=== PATIENT | male | born 1955 | race Caucasian/White ===

== ENCOUNTER 2017-08-26 18:51 | Inpatient (IN) | payer MEDICARE, OTHER ==
[2017-08-26] MEDS: ACETAMINOPHEN 650 MG SUPP PR (19:44)
[2017-08-26] MEDS: CEFEPIME 1GM/50 ML (PMX) 50 ML IVPB (19:53)
[2017-08-26] MEDS: SOD CHLORIDE 0.9% 1,970 ML IV (19:54)
[2017-08-26 20:00] LABS: ADD MAN DIFF? NO
[2017-08-26 20:04] LABS: BASOPHILS % 0.2 % (0.0-2.0); EOSINOPHILS # 0.3 10^3/ul (0.0-0.5); EOSINOPHILS % 1.3 % (0.0-7.0); HEMATOCRIT 28.1 % (42.0-52.0); LYMPHOCYTES # 1.5 10^3/ul (0.8-2.9); LYMPHOCYTES % 7.5 % (15.0-51.0); MEAN CORPUSCULAR HEMOGLOBIN 24.7 pg (29.0-33.0); MEAN CORPUSCULAR VOLUME 77.2 fl (82.0-101.0); MEAN PLATELET VOLUME 10.9 fl (7.4-10.4); MONOCYTE # 1.4 10^3/ul (0.3-0.9); MONOCYTES % 6.9 % (0.0-11.0); NEUTROPHIL # 16.5 10^3/ul (1.6-7.5); NEUTROPHILS % 83.5 % (39.0-77.0); PLATELET COUNT 317 10^3/UL (140-415); RED BLOOD COUNT 3.64 10^6/ul (4.70-6.10); RED CELL DISTRIBUTION WIDTH 21.2 % (11.5-14.5)
[2017-08-26 20:04] LABS: WHITE BLOOD COUNT 19.7 10^3/ul (4.8-10.8)
[2017-08-26 20:24] LABS: AADO2 Arterial 84.7 mmHg (7.0-24.0); Arterial Blood Gas Oxygen Sat 98.3 mmHG (95.0-98.0); Arterial COHb 0.3 % (0.0-3.0); Arterial Fraction of Oxyhgb 97.6 % (93.0-99.0); Arterial HCO3 34.5 mmol/L (22.0-26.0); Arterial MetHb 0.4 % (0.0-1.5); Arterial Total Hemglobin 8.6 g/dl (12.0-18.0); Arterial pCO2 47.2 mmhg (35-45); MODE TRACH COLLAR; PROTIME 14.4 Sec (11.9-14.9); PT RATIO 1.1; Site Right Brachial
[2017-08-26 20:25] LABS: LACTIC ACID 1.6 mmol/L (0.5-2.0)
[2017-08-26 20:25] LABS: PARTIAL THROMBOPLASTIN TIME 41.4 Sec (25.0-35.0)
[2017-08-26 20:27] LABS: ALANINE AMINOTRANSFERASE 32 IU/L (13-69); ALBUMIN/GLOBULIN RATIO 0.69; ALKALINE PHOSPHATASE 87 IU/L (42-121); ANION GAP 8 (8-16); ASPARTATE AMINO TRANSFERASE 38 IU/L (15-46); BILIRUBIN,INDIRECT 0.3 mg/dl (0-1.1); BILIRUBIN,TOTAL 0.3 mg/dl (0.2-1.3); BLOOD UREA NITROGEN 13 mg/dl (7-20); CALCIUM 8.2 mg/dl (8.4-10.2); CARBON DIOXIDE 38 mmol/L (21-31); CHLORIDE 90 mmol/L (97-110); CREATININE 0.46 mg/dl (0.61-1.24); GLUCOSE 88 mg/dl (70-220); POTASSIUM 3.7 mmol/L (3.5-5.1); SODIUM 132 mmol/L (135-144); TOTAL PROTEIN 7.3 g/dl (6.1-8.1)
[2017-08-26 20:38] LABS: TROPONIN-I < 0.012 ng/ml (0.00-0.12)
[2017-08-26] MEDS: VANCOMYCIN 1 GM (PMX) 250 ML IVPB (20:47)
[2017-08-26] MEDS ORDERED: ONDANSETRON 4 MG INJ IV (21:00)
[2017-08-26] MEDS: IPRATROPIUM (NEB) 0.5 MG/2.5 ML AMP NEB (21:00)
[2017-08-26] MEDS ORDERED: METOCLOPRAMIDE 10 MG INJ IV (21:00)
[2017-08-26] MEDS ORDERED: ACETAMINOPHEN 650 MG SUPP PR (21:00)
[2017-08-26] MEDS: AZITHROMYCIN 500MG/NS (PMX) 250 ML IV (21:00)
[2017-08-26] MEDS ORDERED: NA PHOSPHATE/BIPHOS 133 ML ENEMA PR (21:00)
[2017-08-26] MEDS ORDERED: VANCOMYCIN IV PER PHARMACY XX (21:00)
[2017-08-26] MEDS ORDERED: ALBUTEROL/IPRATROPIUM (NEB) 3 ML AMP HHN (21:00)
[2017-08-26] MEDS: ALBUTEROL 0.083% (NEB) 2.5 MG/3 ML AMP NEB (21:00)
[2017-08-26] MEDS ORDERED: ZOLPIDEM 5 MG TAB GTB (21:30)
[2017-08-26] MEDS ORDERED: GLUCAGON 1 MG INJ IM (22:00)
[2017-08-26] MEDS ORDERED: GLUCOSE GEL 15 GRAM TUBE PO ×2 (22:00)
[2017-08-26] MEDS ORDERED: GLUCOSE GEL 15 GRAM TUBE BUCCAL (22:00)
[2017-08-26] MEDS ORDERED: DEXTROSE 50% 50 ML SYRINGE IV ×2 (22:00)
[2017-08-26] MEDS: SOD CHLORIDE 0.9% 500 ML IV (22:14)
[2017-08-26 23:12] LABS: LACTIC ACID 0.9 mmol/L (0.5-2.0)
[2017-08-27 00:32] LABS: LACTIC ACID 1.1 mmol/L (0.5-2.0)
[2017-08-27] MEDS: IPRATROPIUM (NEB) 0.5 MG/2.5 ML AMP NEB ×6 (01:18→20:09)
[2017-08-27] MEDS: ALBUTEROL 0.083% (NEB) 2.5 MG/3 ML AMP NEB ×6 (01:18→20:09)
[2017-08-27] MEDS ORDERED: PENDING SANTYL ORDER FOR WOUND CARE XX (02:00)
[2017-08-27] MEDS: FAMOTIDINE 20 MG INJ IV ×3 (02:22→21:05)
[2017-08-27] MEDS: DEXTROSE 5%-0.9% NACL 1,000 ML IV ×3 (02:23→18:30)
[2017-08-27] MEDS: KETOROLAC 30 MG INJ IV (02:23)
[2017-08-27] MEDS: PIPER-TAZO 3.375 GM IV (PMX) 100 ML IV ×3 (02:24→07:30)
[2017-08-27] MEDS: ACCU-CHEK XX (02:25)
[2017-08-27] MEDS: VANCOMYCIN 1.25 GM in SOD CHLORIDE 0.9% 250 ML IVPB ×2 (07:30→18:23)
[2017-08-27] MEDS: INSULIN ASPART [NOVOLOG] 3 ML PEN SC ×4 (07:55→21:00)
[2017-08-27 08:56] LABS: WHITE BLOOD COUNT 32.4 10^3/ul (4.8-10.8)
[2017-08-27 08:56] LABS: ABNORMAL IP MESSAGE 1; HEMATOCRIT 24.6 % (42.0-52.0); HEMOGLOBIN 7.9 g/dl (14.0-18.0); MEAN CORPUSCULAR HEMOGLOBIN 25.1 pg (29.0-33.0); MEAN CORPUSCULAR HGB CONC 32.1 g/dl (32.0-37.0); MEAN CORPUSCULAR VOLUME 78.1 fl (82.0-101.0); MEAN PLATELET VOLUME 10.9 fl (7.4-10.4); PLATELET COUNT 249 10^3/UL (140-415); POSITIVE DIFF @See below; RED BLOOD COUNT 3.15 10^6/ul (4.70-6.10); RED CELL DISTRIBUTION WIDTH 21.5 % (11.5-14.5)
[2017-08-27] MEDS ORDERED: LACTOBACILLUS RHAMNOSUS CAP PO (09:00)
[2017-08-27 09:04] LABS: ADD MAN DIFF? YES
[2017-08-27 09:13] LABS: ALANINE AMINOTRANSFERASE 32 IU/L (13-69); ALBUMIN 2.5 g/dl (3.3-4.9); ALBUMIN/GLOBULIN RATIO 0.64; ALKALINE PHOSPHATASE 133 IU/L (42-121); ANION GAP 12 (8-16); ASPARTATE AMINO TRANSFERASE 51 IU/L (15-46); BILIRUBIN,INDIRECT 0.2 mg/dl (0-1.1); BILIRUBIN,TOTAL 0.2 mg/dl (0.2-1.3); BLOOD UREA NITROGEN 14 mg/dl (7-20); CALCIUM 7.7 mg/dl (8.4-10.2); CARBON DIOXIDE 29 mmol/L (21-31); CHLORIDE 98 mmol/L (97-110); CREATININE 0.59 mg/dl (0.61-1.24); GLUCOSE 82 mg/dl (70-220); HDL CHOLESTEROL 18 mg/dl (30-78); MAGNESIUM 1.7 mg/dl (1.7-2.5); SODIUM 136 mmol/L (135-144); TOTAL PROTEIN 6.4 g/dl (6.1-8.1); TRIGLYCERIDES 65 mg/dl (0-149)
[2017-08-27 09:15] LABS: POTASSIUM 2.9 mmol/L (3.5-5.1)
[2017-08-27 09:16] LABS: CHOLESTEROL < 50 mg/dl (100-200)
[2017-08-27 09:37] LABS: HEMOGLOBIN A1C 5.4 % (0-5.9)
[2017-08-27] MEDS: FLUDROCORTISONE 0.1 MG TAB GTB (10:16)
[2017-08-27] MEDS: POTASSIUM CHLORIDE 20 MEQ POWDER FOR ORAL SOLN JT (10:16)
[2017-08-27] MEDS: LACTOBACILLUS RHAMNOSUS CAP GTB ×2 (10:16→21:05)
[2017-08-27] MEDS: POTASSIUM CHLORIDE 100 ML IVPB ×2 (10:46→13:26)
[2017-08-27 10:53] LABS: ANISOCYTOSIS 2+ (0-0); BAND NEUTROPHILS #M 9.7 10^3/ul (0.0-0.6); BAND NEUTROPHILS % (M) 30 % (0-4); GIANT THROMBO% (M) 2 % (0-0); HYPOCHROMASIA 2+ (0-0); LYMPHOCYTES #M 0.3 10^3/ul (0.8-2.9); LYMPHOCYTES % (M) 1 % (15-51); METAMYELOCYTES #M 1.2 10^3/ul (0.0-0.0); METAMYELOCYTES %M 4 % (0-0); MICROCYTOSIS 1+ (0-0); MONOCYTE #M 1.6 10^3/ul (0.3-0.9); MONOCYTES % (M) 5 % (0-11); MYELOCYTES #M 2.2 10^3/ul (0.0-0.0); MYELOCYTES % (M) 7 % (0-0); OVALOCYTES 1+ (0-0); PLATELET ESTIMATE NORMAL; ROULEAU 1+ (0-0); SEG NEUT #M 20.3 10^3/ul (1.6-7.5); SEGMENTED NEUTROPHILS (M) % 53 % (39-77); SMUDGE%M 1 % (0-0)
[2017-08-27] MEDS: OSELTAMIVIR PHOSPHATE (6 MG/ML PO SYG) GTB (11:06)
[2017-08-27 13:37] LABS: PHOSPHORUS 2.7 mg/dl (2.5-4.9)
[2017-08-27 13:47] LABS: ADD UMIC YES; UR ASCORBIC ACID 40 mg/dL (NEGATIVE); UR BACTERIA FEW /HPF (NONE SEEN); UR BILIRUBIN (Dip) NEGATIVE (NEGATIVE); UR BLOOD (Dip) 3+ mg/dL (NEGATIVE); UR CLARITY SLIGHTLY CLOUDY (CLEAR); UR COLOR YELLOW (YELLOW); UR GLUCOSE (Dip) NEGATIVE (NEGATIVE); UR KETONES (Dip) NEGATIVE (NEGATIVE); UR LEUKOCYTE ESTERASE (Dip) 3+ Leu/ul (NEGATIVE); UR MUCUS FEW /HPF (NONE SEEN); UR NITRITE (Dip) NEGATIVE (NEGATIVE); UR RBC 120 /HPF (0-5); UR SPECIFIC GRAVITY (Dip) 1.015 (1.003-1.030); UR TOTAL PROTEIN (Dip) 1+ mg/dl (NEGATIVE); UR UROBILINOGEN (Dip) NEGATIVE (NEGATIVE); UR WBC 60 /HPF (0-5)
[2017-08-27] MEDS: MEROPENEM 1 GM/50ML(PMX) 50 ML IVPB ×2 (14:54→21:05)
[2017-08-27 15:03] LABS: HEMATOCRIT 24.4 % (42.0-52.0); HEMOGLOBIN 8.1 g/dl (14.0-18.0)
[2017-08-27 16:40] LABS: OPIATES Positive (NEGATIVE)
[2017-08-27 17:03] LABS: AMPHETAMINE/METHAMPHETAMINE Negative (NEGATIVE); BARBITURATES Negative (NEGATIVE); BENZODIAZEPINES Negative (NEGATIVE); CANNABINOIDS Negative (NEGATIVE); COCAINE Negative (NEGATIVE)
[2017-08-27] MEDS: ATORVASTATIN 10 MG TAB GTB (21:05)
[2017-08-28] MEDS: ALBUTEROL 0.083% (NEB) 2.5 MG/3 ML AMP NEB ×6 (01:06→20:36)
[2017-08-28] MEDS: IPRATROPIUM (NEB) 0.5 MG/2.5 ML AMP NEB ×6 (01:06→20:37)
[2017-08-28] MEDS: ACCU-CHEK XX (02:00)
[2017-08-28] MEDS: INSULIN ASPART [NOVOLOG] 3 ML PEN SC ×6 (02:36→21:00)
[2017-08-28] MEDS: DEXTROSE 5%-0.9% NACL 1,000 ML IV ×2 (02:38→14:30)
[2017-08-28] MEDS: MEROPENEM 1 GM/50ML(PMX) 50 ML IVPB ×3 (05:10→22:32)
[2017-08-28] MEDS: VANCOMYCIN 1.25 GM in SOD CHLORIDE 0.9% 250 ML IVPB ×2 (06:24→18:14)
[2017-08-28 07:27] LABS: ABNORMAL IP MESSAGE 1; HEMATOCRIT 21.6 % (42.0-52.0); HEMOGLOBIN 7.3 g/dl (14.0-18.0); MEAN CORPUSCULAR HEMOGLOBIN 25.6 pg (29.0-33.0); MEAN CORPUSCULAR HGB CONC 33.8 g/dl (32.0-37.0); MEAN CORPUSCULAR VOLUME 75.8 fl (82.0-101.0); PLATELET COUNT 261 10^3/UL (140-415); POSITIVE DIFF @See below; RED BLOOD COUNT 2.85 10^6/ul (4.70-6.10); RED CELL DISTRIBUTION WIDTH 21.8 % (11.5-14.5)
[2017-08-28 07:27] LABS: WHITE BLOOD COUNT 39.4 10^3/ul (4.8-10.8)
[2017-08-28 07:34] LABS: ADD MAN DIFF? YES
[2017-08-28 07:40] LABS: ANION GAP 8 (8-16)
[2017-08-28 07:42] LABS: POTASSIUM 3.6 mmol/L (3.5-5.1); SODIUM 138 mmol/L (135-144)
[2017-08-28 07:43] LABS: ALANINE AMINOTRANSFERASE 26 IU/L (13-69); ALBUMIN 2.3 g/dl (3.3-4.9); ALKALINE PHOSPHATASE 94 IU/L (42-121); ASPARTATE AMINO TRANSFERASE 33 IU/L (15-46); BLOOD UREA NITROGEN 16 mg/dl (7-20); CALCIUM 7.7 mg/dl (8.4-10.2); CARBON DIOXIDE 30 mmol/L (21-31); CHLORIDE 104 mmol/L (97-110); CREATININE 0.49 mg/dl (0.61-1.24); GLUCOSE 138 mg/dl (70-220); TOTAL PROTEIN 6.1 g/dl (6.1-8.1)
[2017-08-28 07:54] LABS: MAGNESIUM 1.9 mg/dl (1.7-2.5)
[2017-08-28 07:54] LABS: PHOSPHORUS 1.6 mg/dl (2.5-4.9)
[2017-08-28 08:26] LABS: BAND NEUTROPHILS #M 16.5 10^3/ul (0.0-0.6); BAND NEUTROPHILS % (M) 42 % (0-4); EOSINOPHILS % (M) 2 % (0-7); LYMPHOCYTES #M 1.1 10^3/ul (0.8-2.9); LYMPHOCYTES % (M) 3 % (15-51); MONOCYTE #M 0.7 10^3/ul (0.3-0.9); MONOCYTES % (M) 2 % (0-11); PLATELET ESTIMATE NORMAL; POLYCHROMASIA 3+ (0-0); REACTIVE LYMPHOCYTES #M 0.3 10^3/ul (0.0-0.0); REACTIVE LYMPHOCYTES% (M) 1 % (0-0); SEG NEUT #M 26.2 10^3/ul (1.6-7.5); SEGMENTED NEUTROPHILS (M) % 50 % (39-77); SMUDGE%M 5 % (0-0)
[2017-08-28] MEDS: FAMOTIDINE 20 MG INJ IV ×2 (08:30→20:59)
[2017-08-28] MEDS: LACTOBACILLUS RHAMNOSUS CAP GTB ×2 (08:30→20:59)
[2017-08-28] MEDS: FLUDROCORTISONE 0.1 MG TAB GTB (08:30)
[2017-08-28] MEDS: BALSAM PERU/CASTOR OIL 60 GM TUBE TOP (08:31)
[2017-08-28 17:30] LABS: VANCOMYCIN,TROUGH 17.6 ug/ml (10.0-20.0)
[2017-08-28] MEDS: ATORVASTATIN 10 MG TAB GTB (20:59)
[2017-08-28] MEDS: SODIUM HYPOCHLORITE 0.125% 473 ML BTL IRR (21:00)
[2017-08-29] MEDS: ALBUTEROL 0.083% (NEB) 2.5 MG/3 ML AMP NEB ×6 (00:49→20:02)
[2017-08-29] MEDS: IPRATROPIUM (NEB) 0.5 MG/2.5 ML AMP NEB ×6 (00:49→20:02)
[2017-08-29] MEDS: INSULIN ASPART [NOVOLOG] 3 ML PEN SC ×4 (01:00→17:29)
[2017-08-29] MEDS: ACCU-CHEK XX (01:18)
[2017-08-29] MEDS: MEROPENEM 1 GM/50ML(PMX) 50 ML IVPB (05:58)
[2017-08-29 06:18] LABS: WHITE BLOOD COUNT 34.3 10^3/ul (4.8-10.8)
[2017-08-29 06:18] LABS: ABNORMAL IP MESSAGE 1; HEMOGLOBIN 7.9 g/dl (14.0-18.0); MEAN CORPUSCULAR HEMOGLOBIN 24.8 pg (29.0-33.0); MEAN CORPUSCULAR HGB CONC 31.6 g/dl (32.0-37.0); MEAN CORPUSCULAR VOLUME 78.4 fl (82.0-101.0); MEAN PLATELET VOLUME 10.4 fl (7.4-10.4); PLATELET COUNT 275 10^3/UL (140-415); POSITIVE DIFF @See below; RED BLOOD COUNT 3.19 10^6/ul (4.70-6.10); RED CELL DISTRIBUTION WIDTH 21.9 % (11.5-14.5)
[2017-08-29 06:25] LABS: ADD MAN DIFF? YES
[2017-08-29] MEDS: VANCOMYCIN 1 GM 250 ML IVPB (06:43)
[2017-08-29 06:49] LABS: PHOSPHORUS 1.8 mg/dl (2.5-4.9)
[2017-08-29 06:49] LABS: MAGNESIUM 2.1 mg/dl (1.7-2.5)
[2017-08-29 06:56] LABS: ALANINE AMINOTRANSFERASE 24 IU/L (13-69); ALBUMIN 2.3 g/dl (3.3-4.9); ALBUMIN/GLOBULIN RATIO 0.62; ALKALINE PHOSPHATASE 110 IU/L (42-121); ANION GAP 8 (8-16); ASPARTATE AMINO TRANSFERASE 36 IU/L (15-46); BILIRUBIN,INDIRECT 0.1 mg/dl (0-1.1); BILIRUBIN,TOTAL 0.1 mg/dl (0.2-1.3); BLOOD UREA NITROGEN 16 mg/dl (7-20); CALCIUM 7.9 mg/dl (8.4-10.2); CARBON DIOXIDE 31 mmol/L (21-31); CHLORIDE 107 mmol/L (97-110); CREATININE 0.37 mg/dl (0.61-1.24); GLUCOSE 118 mg/dl (70-220); POTASSIUM 3.6 mmol/L (3.5-5.1); SODIUM 142 mmol/L (135-144)
[2017-08-29 07:35] LABS: ANISOCYTOSIS 1+ (0-0); BAND NEUTROPHILS #M 8.9 10^3/ul (0.0-0.6); BAND NEUTROPHILS % (M) 26 % (0-4); EOSINOPHILS % (M) 2 % (0-7); GIANT THROMBO% (M) 2 % (0-0); HYPOCHROMASIA 1+ (0-0); LYMPHOCYTES % (M) 3 % (15-51); MICROCYTOSIS 1+ (0-0); MONOCYTE #M 0.6 10^3/ul (0.3-0.9); MONOCYTES % (M) 2 % (0-11); PLATELET ESTIMATE NORMAL; POIKILOCYTOSIS 1+ (0-0); POLYCHROMASIA 3+ (0-0); REACTIVE LYMPHOCYTES% (M) 3 % (0-0); SEGMENTED NEUTROPHILS (M) % 64 % (39-77); SMUDGE%M 9 % (0-0)
[2017-08-29] MEDS: FLUDROCORTISONE 0.1 MG TAB GTB (08:26)
[2017-08-29] MEDS: SODIUM HYPOCHLORITE 0.125% 473 ML BTL IRR ×2 (08:26→21:35)
[2017-08-29] MEDS: BALSAM PERU/CASTOR OIL 60 GM TUBE TOP (08:26)
[2017-08-29] MEDS: LACTOBACILLUS RHAMNOSUS CAP GTB ×2 (08:26→21:35)
[2017-08-29] MEDS: FAMOTIDINE 20 MG INJ IV ×2 (08:26→21:35)
[2017-08-29] MEDS: COLISTIMETHATE 75 MG in SOD CHLORIDE 0.9% 100 ML IVPB ×2 (13:51→23:03)
[2017-08-29] MEDS: POTASSIUM PHOSPHATE 30 MM in SOD CHLORIDE 0.9% 250 ML IVPB (16:44)
[2017-08-29] MEDS: ZYVOX 600 MG TAB PO (21:35)
[2017-08-29] MEDS: ATORVASTATIN 10 MG TAB GTB (21:35)
[2017-08-30] MEDS: ACCU-CHEK XX (02:00)
[2017-08-30] MEDS: IPRATROPIUM (NEB) 0.5 MG/2.5 ML AMP NEB ×6 (02:14→20:06)
[2017-08-30] MEDS: ALBUTEROL 0.083% (NEB) 2.5 MG/3 ML AMP NEB ×6 (02:14→20:06)
[2017-08-30] MEDS: INSULIN ASPART [NOVOLOG] 3 ML PEN SC ×4 (06:00→17:29)
[2017-08-30 08:15] LABS: ADD MAN DIFF? NO
[2017-08-30 08:26] LABS: WHITE BLOOD COUNT 20.3 10^3/ul (4.8-10.8)
[2017-08-30 08:26] LABS: ABNORMAL IP MESSAGE 1; BASOPHILS % 0.2 % (0.0-2.0); EOSINOPHILS % 9.9 % (0.0-7.0); HEMATOCRIT 25.4 % (42.0-52.0); HEMOGLOBIN 8.1 g/dl (14.0-18.0); LYMPHOCYTES # 3.2 10^3/ul (0.8-2.9); LYMPHOCYTES % 15.5 % (15.0-51.0); MEAN CORPUSCULAR HEMOGLOBIN 24.6 pg (29.0-33.0); MEAN CORPUSCULAR HGB CONC 31.9 g/dl (32.0-37.0); MEAN CORPUSCULAR VOLUME 77.2 fl (82.0-101.0); MEAN PLATELET VOLUME 10.9 fl (7.4-10.4); MONOCYTE # 0.7 10^3/ul (0.3-0.9); MONOCYTES % 3.6 % (0.0-11.0); NEUTROPHIL # 14.3 10^3/ul (1.6-7.5); NEUTROPHILS % 70.4 % (39.0-77.0); PLATELET COUNT 248 10^3/UL (140-415); POSITIVE DIFF @See below; RED BLOOD COUNT 3.29 10^6/ul (4.70-6.10); RED CELL DISTRIBUTION WIDTH 22.2 % (11.5-14.5)
[2017-08-30 08:51] LABS: ANION GAP 9 (8-16); BLOOD UREA NITROGEN 14 mg/dl (7-20); CALCIUM 7.8 mg/dl (8.4-10.2); CARBON DIOXIDE 30 mmol/L (21-31); CHLORIDE 108 mmol/L (97-110); CREATININE 0.35 mg/dl (0.61-1.24); GLUCOSE 93 mg/dl (70-220); POTASSIUM 4.1 mmol/L (3.5-5.1); SODIUM 143 mmol/L (135-144)
[2017-08-30] MEDS: LACTOBACILLUS RHAMNOSUS CAP GTB ×2 (08:53→21:23)
[2017-08-30] MEDS: FLUDROCORTISONE 0.1 MG TAB GTB (08:55)
[2017-08-30] MEDS: ZYVOX 600 MG TAB PO ×2 (08:55→21:23)
[2017-08-30] MEDS: SODIUM HYPOCHLORITE 0.125% 473 ML BTL IRR ×2 (08:56→21:23)
[2017-08-30] MEDS: BALSAM PERU/CASTOR OIL 60 GM TUBE TOP (08:56)
[2017-08-30] MEDS: FAMOTIDINE 20 MG INJ IV ×2 (08:56→21:21)
[2017-08-30 08:57] LABS: MAGNESIUM 1.8 mg/dl (1.7-2.5)
[2017-08-30 08:57] LABS: PHOSPHORUS 2.3 mg/dl (2.5-4.9)
[2017-08-30] MEDS: COLISTIMETHATE 75 MG in SOD CHLORIDE 0.9% 100 ML IVPB ×2 (09:06→21:24)
[2017-08-30] MEDS: FLUCONAZOLE 100 MG TAB PO (13:59)
[2017-08-30] MEDS: ATORVASTATIN 10 MG TAB GTB (21:23)
[2017-08-31] MEDS: ALBUTEROL 0.083% (NEB) 2.5 MG/3 ML AMP NEB ×6 (00:36→20:02)
[2017-08-31] MEDS: IPRATROPIUM (NEB) 0.5 MG/2.5 ML AMP NEB ×6 (00:36→20:02)
[2017-08-31] MEDS: ACCU-CHEK XX (02:00)
[2017-08-31] MEDS: INSULIN ASPART [NOVOLOG] 3 ML PEN SC ×4 (06:00→18:00)
[2017-08-31 06:24] LABS: ADD MAN DIFF? NO
[2017-08-31 06:28] LABS: ABNORMAL IP MESSAGE 1; BASOPHIL # 0.1 10^3/ul (0.0-0.1); BASOPHILS % 0.3 % (0.0-2.0); EOSINOPHILS # 2.9 10^3/ul (0.0-0.5); EOSINOPHILS % 18.1 % (0.0-7.0); HEMATOCRIT 26.4 % (42.0-52.0); HEMOGLOBIN 8.2 g/dl (14.0-18.0); LYMPHOCYTES % 24.9 % (15.0-51.0); MEAN CORPUSCULAR HEMOGLOBIN 24.1 pg (29.0-33.0); MEAN CORPUSCULAR HGB CONC 31.1 g/dl (32.0-37.0); MEAN CORPUSCULAR VOLUME 77.6 fl (82.0-101.0); MEAN PLATELET VOLUME 10.6 fl (7.4-10.4); MONOCYTE # 0.8 10^3/ul (0.3-0.9); MONOCYTES % 4.9 % (0.0-11.0); NEUTROPHIL # 8.3 10^3/ul (1.6-7.5); NEUTROPHILS % 51.4 % (39.0-77.0); PLATELET COUNT 263 10^3/UL (140-415); POSITIVE DIFF @See below; RED CELL DISTRIBUTION WIDTH 22.2 % (11.5-14.5)
[2017-08-31 06:28] LABS: WHITE BLOOD COUNT 16.2 10^3/ul (4.8-10.8)
[2017-08-31 07:21] LABS: ANION GAP 11 (8-16); BLOOD UREA NITROGEN 13 mg/dl (7-20); CALCIUM 8.1 mg/dl (8.4-10.2); CARBON DIOXIDE 33 mmol/L (21-31); CHLORIDE 105 mmol/L (97-110); CREATININE 0.41 mg/dl (0.61-1.24); GLUCOSE 77 mg/dl (70-220); POTASSIUM 4.3 mmol/L (3.5-5.1); SODIUM 145 mmol/L (135-144)
[2017-08-31 08:03] LABS: PHOSPHORUS 2.4 mg/dl (2.5-4.9)
[2017-08-31 08:03] LABS: MAGNESIUM 1.6 mg/dl (1.7-2.5)
[2017-08-31] MEDS: SODIUM HYPOCHLORITE 0.125% 473 ML BTL IRR ×2 (08:30→21:16)
[2017-08-31] MEDS: FAMOTIDINE 20 MG INJ IV ×2 (08:30→21:16)
[2017-08-31] MEDS: ZYVOX 600 MG TAB PO ×2 (08:30→21:16)
[2017-08-31] MEDS: FLUCONAZOLE 100 MG TAB PO (08:30)
[2017-08-31] MEDS: LACTOBACILLUS RHAMNOSUS CAP GTB ×2 (08:30→21:16)
[2017-08-31] MEDS: FLUDROCORTISONE 0.1 MG TAB GTB (08:30)
[2017-08-31] MEDS: BALSAM PERU/CASTOR OIL 60 GM TUBE TOP (08:31)
[2017-08-31] MEDS: COLISTIMETHATE 75 MG in SOD CHLORIDE 0.9% 100 ML IVPB ×2 (08:39→21:16)
[2017-08-31] MEDS: MAGNESIUM SULFATE 2 GM/50 ML 50 ML IVPB (09:49)
[2017-08-31] MEDS: ATORVASTATIN 10 MG TAB GTB (21:16)
[2017-09-01] MEDS: ALBUTEROL 0.083% (NEB) 2.5 MG/3 ML AMP NEB ×6 (01:24→20:25)
[2017-09-01] MEDS: IPRATROPIUM (NEB) 0.5 MG/2.5 ML AMP NEB ×6 (01:24→20:25)
[2017-09-01] MEDS: ACCU-CHEK XX (02:11)
[2017-09-01] MEDS: INSULIN ASPART [NOVOLOG] 3 ML PEN SC ×4 (06:00→18:00)
[2017-09-01 07:11] LABS: WHITE BLOOD COUNT 14.1 10^3/ul (4.8-10.8)
[2017-09-01 07:11] LABS: ABNORMAL IP MESSAGE 1; HEMATOCRIT 26.8 % (42.0-52.0); HEMOGLOBIN 8.5 g/dl (14.0-18.0); MEAN CORPUSCULAR HEMOGLOBIN 24.6 pg (29.0-33.0); MEAN CORPUSCULAR HGB CONC 31.7 g/dl (32.0-37.0); MEAN CORPUSCULAR VOLUME 77.5 fl (82.0-101.0); MEAN PLATELET VOLUME 11.3 fl (7.4-10.4); PLATELET COUNT 244 10^3/UL (140-415); RED BLOOD COUNT 3.46 10^6/ul (4.70-6.10); RED CELL DISTRIBUTION WIDTH 22.1 % (11.5-14.5)
[2017-09-01 07:18] LABS: ADD MAN DIFF? YES
[2017-09-01 07:24] LABS: ALANINE AMINOTRANSFERASE 37 IU/L (13-69); ALBUMIN 2.6 g/dl (3.3-4.9); ALBUMIN/GLOBULIN RATIO 0.68; ALKALINE PHOSPHATASE 105 IU/L (42-121); ANION GAP 12 (8-16); ASPARTATE AMINO TRANSFERASE 40 IU/L (15-46); BILIRUBIN,INDIRECT 0.2 mg/dl (0-1.1); BILIRUBIN,TOTAL 0.2 mg/dl (0.2-1.3); BLOOD UREA NITROGEN 12 mg/dl (7-20); CALCIUM 8.4 mg/dl (8.4-10.2); CARBON DIOXIDE 33 mmol/L (21-31); CHLORIDE 101 mmol/L (97-110); GLUCOSE 84 mg/dl (70-220); MAGNESIUM 1.8 mg/dl (1.7-2.5); POTASSIUM 4.3 mmol/L (3.5-5.1); SODIUM 142 mmol/L (135-144); TOTAL PROTEIN 6.4 g/dl (6.1-8.1)
[2017-09-01] MEDS: FAMOTIDINE 20 MG INJ IV ×2 (10:08→21:25)
[2017-09-01] MEDS: FLUDROCORTISONE 0.1 MG TAB GTB (10:08)
[2017-09-01] MEDS: FERROUS SULFATE 60 MG/ML 5ML CUP PEG ×2 (10:08→21:25)
[2017-09-01] MEDS: FLUCONAZOLE 100 MG TAB PO (10:08)
[2017-09-01] MEDS: LACTOBACILLUS RHAMNOSUS CAP GTB ×2 (10:08→21:25)
[2017-09-01] MEDS: COLISTIMETHATE 75 MG in SOD CHLORIDE 0.9% 100 ML IVPB ×2 (10:08→21:34)
[2017-09-01] MEDS: ZYVOX 600 MG TAB PO ×2 (10:09→21:25)
[2017-09-01] MEDS: FOLIC ACID 1 MG TAB PEG (10:09)
[2017-09-01] MEDS: SODIUM HYPOCHLORITE 0.125% 473 ML BTL IRR ×2 (10:09→21:34)
[2017-09-01] MEDS: BALSAM PERU/CASTOR OIL 60 GM TUBE TOP (10:10)
[2017-09-01 11:05] LABS: BASOPHIL # 0.1 10^3/ul (0.0-0.1); EOSINOPHILS # 3.7 10^3/ul (0.0-0.5); EOSINOPHILS % (M) 26 % (0.0-7.0); LYMPHOCYTES # 3.1 10^3/ul (0.8-2.9); LYMPHOCYTES #M 3.1 10^3/ul (0.8-2.9); LYMPHOCYTES % (M) 22 % (15-51); MONOCYTE # 0.4 10^3/ul (0.3-0.9); MONOCYTE #M 0.4 10^3/ul (0.3-0.9); MONOCYTES % (M) 3 % (0-11); REACTIVE LYMPHOCYTES #M 0.1 10^3/ul (0.0-0.0); REACTIVE LYMPHOCYTES% (M) 1 % (0-0); SEGMENTED NEUTROPHILS (M) % 47 % (39-77)
[2017-09-01 11:06] LABS: POIKILOCYTOSIS 2+ (0-0); POLYCHROMASIA 1+ (0-0)
[2017-09-01 11:07] LABS: ANISOCYTOSIS 1+ (0-0); BURR CELLS FEW; HYPOCHROMASIA 1+ (0-0); MICROCYTOSIS 1+ (0-0); TARGET CELLS OCCASIONAL (0-0)
[2017-09-01] MEDS: SOD FERRIC GLUC COMPLX 125 MG in SOD CHLORIDE 0.9% 100 ML IVPB (17:18)
[2017-09-01] MEDS: ATORVASTATIN 10 MG TAB GTB (21:25)
[2017-09-02] MEDS: INSULIN ASPART [NOVOLOG] 3 ML PEN SC ×4 (00:30→17:45)
[2017-09-02] MEDS: ALBUTEROL 0.083% (NEB) 2.5 MG/3 ML AMP NEB ×6 (01:00→20:38)
[2017-09-02] MEDS: IPRATROPIUM (NEB) 0.5 MG/2.5 ML AMP NEB ×6 (01:00→20:38)
[2017-09-02] MEDS: ACCU-CHEK XX (01:08)
[2017-09-02] MEDS: LACTOBACILLUS RHAMNOSUS CAP GTB ×2 (09:43→22:59)
[2017-09-02] MEDS: FERROUS SULFATE 60 MG/ML 5ML CUP PEG ×2 (09:43→23:00)
[2017-09-02] MEDS: FOLIC ACID 1 MG TAB PEG (09:44)
[2017-09-02] MEDS: ZYVOX 600 MG TAB PO ×2 (09:44→22:59)
[2017-09-02] MEDS: FLUCONAZOLE 100 MG TAB PO (09:44)
[2017-09-02] MEDS: SODIUM HYPOCHLORITE 0.125% 473 ML BTL IRR ×2 (09:44→23:01)
[2017-09-02] MEDS: FLUDROCORTISONE 0.1 MG TAB GTB (09:44)
[2017-09-02] MEDS: FAMOTIDINE 20 MG INJ IV ×2 (09:44→22:59)
[2017-09-02] MEDS: BALSAM PERU/CASTOR OIL 60 GM TUBE TOP (09:45)
[2017-09-02] MEDS: COLISTIMETHATE 75 MG in SOD CHLORIDE 0.9% 100 ML IVPB ×2 (09:56→23:01)
[2017-09-02 11:45] LABS: ABNORMAL IP MESSAGE 1; HEMATOCRIT 27.2 % (42.0-52.0); HEMOGLOBIN 8.5 g/dl (14.0-18.0); MEAN CORPUSCULAR HEMOGLOBIN 24.9 pg (29.0-33.0); MEAN CORPUSCULAR HGB CONC 31.3 g/dl (32.0-37.0); MEAN CORPUSCULAR VOLUME 79.8 fl (82.0-101.0); MEAN PLATELET VOLUME 11.7 fl (7.4-10.4); PLATELET COUNT 225 10^3/UL (140-415); POSITIVE DIFF @See below; RED BLOOD COUNT 3.41 10^6/ul (4.70-6.10); RED CELL DISTRIBUTION WIDTH 22.2 % (11.5-14.5)
[2017-09-02 11:45] LABS: WHITE BLOOD COUNT 11.2 10^3/ul (4.8-10.8)
[2017-09-02 11:47] LABS: ADD MAN DIFF? YES
[2017-09-02 11:54] LABS: ANION GAP 11 (8-16); BLOOD UREA NITROGEN 13 mg/dl (7-20); CALCIUM 8.4 mg/dl (8.4-10.2); CARBON DIOXIDE 30 mmol/L (21-31); CHLORIDE 103 mmol/L (97-110); CREATININE 0.34 mg/dl (0.61-1.24); GLUCOSE 106 mg/dl (70-220); MAGNESIUM 1.5 mg/dl (1.7-2.5); POTASSIUM 4.2 mmol/L (3.5-5.1); SODIUM 140 mmol/L (135-144)
[2017-09-02 13:19] LABS: BAND NEUTROPHILS #M 0.5 10^3/ul (0.0-0.6); BAND NEUTROPHILS % (M) 5 % (0-4); EOSINOPHILS # 2.2 10^3/ul (0.0-0.5); EOSINOPHILS % (M) 20 % (0.0-7.0); LYMPHOCYTES # 3.2 10^3/ul (0.8-2.9); LYMPHOCYTES #M 3.2 10^3/ul (0.8-2.9); LYMPHOCYTES % (M) 29 % (15-51); MONOCYTE # 0.4 10^3/ul (0.3-0.9); MONOCYTE #M 0.4 10^3/ul (0.3-0.9); MONOCYTES % (M) 4 % (0-11); SEG NEUT #M 4.8 10^3/ul (1.7-7.5); SEGMENTED NEUTROPHILS (M) % 42 % (39-77)
[2017-09-02] MEDS: MAGNESIUM SULFATE 4 GM/100 ML 100 ML IVPB (15:09)
[2017-09-02] MEDS: SOD FERRIC GLUC COMPLX 125 MG in SOD CHLORIDE 0.9% 100 ML IVPB (17:46)
[2017-09-02] MEDS: ATORVASTATIN 10 MG TAB GTB (22:59)
[2017-09-03] MEDS: IPRATROPIUM (NEB) 0.5 MG/2.5 ML AMP NEB ×6 (01:20→21:10)
[2017-09-03] MEDS: ALBUTEROL 0.083% (NEB) 2.5 MG/3 ML AMP NEB ×6 (01:21→21:10)
[2017-09-03] MEDS: ACCU-CHEK XX (02:00)
[2017-09-03] MEDS: INSULIN ASPART [NOVOLOG] 3 ML PEN SC ×5 (06:00→23:22)
[2017-09-03 07:17] LABS: ADD MAN DIFF? NO
[2017-09-03 07:22] LABS: ABNORMAL IP MESSAGE 1; BASOPHILS % 0.4 % (0.0-2.0); EOSINOPHILS # 2.2 10^3/ul (0.0-0.5); EOSINOPHILS % 20.2 % (0.0-7.0); HEMATOCRIT 26.6 % (42.0-52.0); HEMOGLOBIN 8.3 g/dl (14.0-18.0); LYMPHOCYTES % 27.7 % (15.0-51.0); MEAN CORPUSCULAR HEMOGLOBIN 24.3 pg (29.0-33.0); MEAN CORPUSCULAR HGB CONC 31.2 g/dl (32.0-37.0); MEAN CORPUSCULAR VOLUME 77.8 fl (82.0-101.0); MEAN PLATELET VOLUME 11.9 fl (7.4-10.4); MONOCYTE # 0.8 10^3/ul (0.3-0.9); MONOCYTES % 7.7 % (0.0-11.0); NEUTROPHIL # 4.7 10^3/ul (1.6-7.5); NEUTROPHILS % 43.7 % (39.0-77.0); PLATELET COUNT 265 10^3/UL (140-415); POSITIVE DIFF @See below; RED BLOOD COUNT 3.42 10^6/ul (4.70-6.10); RED CELL DISTRIBUTION WIDTH 22.7 % (11.5-14.5)
[2017-09-03 07:22] LABS: WHITE BLOOD COUNT 10.7 10^3/ul (4.8-10.8)
[2017-09-03 07:44] LABS: MAGNESIUM 1.9 mg/dl (1.7-2.5)
[2017-09-03 07:44] LABS: PHOSPHORUS 3.8 mg/dl (2.5-4.9)
[2017-09-03 07:49] LABS: ANION GAP 11 (8-16); BLOOD UREA NITROGEN 13 mg/dl (7-20); CARBON DIOXIDE 35 mmol/L (21-31); CHLORIDE 101 mmol/L (97-110); CREATININE 0.35 mg/dl (0.61-1.24); GLUCOSE 68 mg/dl (70-220); POTASSIUM 3.5 mmol/L (3.5-5.1); SODIUM 143 mmol/L (135-144)
[2017-09-03] MEDS: FLUDROCORTISONE 0.1 MG TAB GTB (08:42)
[2017-09-03] MEDS: FERROUS SULFATE 60 MG/ML 5ML CUP PEG ×2 (08:42→20:13)
[2017-09-03] MEDS: ZYVOX 600 MG TAB PO ×2 (08:42→20:13)
[2017-09-03] MEDS: LACTOBACILLUS RHAMNOSUS CAP GTB ×2 (08:42→20:13)
[2017-09-03] MEDS: FOLIC ACID 1 MG TAB PEG (08:42)
[2017-09-03] MEDS: FLUCONAZOLE 100 MG TAB PO (08:42)
[2017-09-03] MEDS: COLISTIMETHATE 75 MG in SOD CHLORIDE 0.9% 100 ML IVPB ×2 (08:42→20:13)
[2017-09-03] MEDS: FAMOTIDINE 20 MG INJ IV ×2 (08:42→20:13)
[2017-09-03] MEDS: SODIUM HYPOCHLORITE 0.125% 473 ML BTL IRR ×2 (08:43→20:13)
[2017-09-03] MEDS: BALSAM PERU/CASTOR OIL 60 GM TUBE TOP (08:44)
[2017-09-03] MEDS ORDERED: VITAMIN A & D 5 GM OINT PACKET TOP (16:08)
[2017-09-03] MEDS: SOD FERRIC GLUC COMPLX 125 MG in SOD CHLORIDE 0.9% 100 ML IVPB (17:37)
[2017-09-03] MEDS: ATORVASTATIN 10 MG TAB GTB (20:13)
[2017-09-04] MEDS: ALBUTEROL 0.083% (NEB) 2.5 MG/3 ML AMP NEB ×6 (01:00→20:37)
[2017-09-04] MEDS: IPRATROPIUM (NEB) 0.5 MG/2.5 ML AMP NEB ×6 (01:00→20:37)
[2017-09-04] MEDS: ACCU-CHEK XX (02:00)
[2017-09-04] MEDS: INSULIN ASPART [NOVOLOG] 3 ML PEN SC ×3 (05:19→17:52)
[2017-09-04] MEDS: LACTOBACILLUS RHAMNOSUS CAP GTB ×2 (08:56→20:09)
[2017-09-04] MEDS: COLISTIMETHATE 75 MG in SOD CHLORIDE 0.9% 100 ML IVPB ×2 (08:57→20:09)
[2017-09-04] MEDS: FOLIC ACID 1 MG TAB PEG (08:57)
[2017-09-04] MEDS: FAMOTIDINE 20 MG INJ IV ×2 (08:57→20:10)
[2017-09-04] MEDS: FLUCONAZOLE 100 MG TAB PO (08:57)
[2017-09-04] MEDS: FERROUS SULFATE 60 MG/ML 5ML CUP PEG ×2 (08:57→20:09)
[2017-09-04] MEDS: FLUDROCORTISONE 0.1 MG TAB GTB (08:57)
[2017-09-04] MEDS: ZYVOX 600 MG TAB PO ×2 (08:57→20:09)
[2017-09-04] MEDS: SODIUM HYPOCHLORITE 0.125% 473 ML BTL IRR ×2 (08:58→20:10)
[2017-09-04] MEDS: BALSAM PERU/CASTOR OIL 60 GM TUBE TOP (08:58)
[2017-09-04 10:25] LABS: ADD MAN DIFF? NO
[2017-09-04 10:27] LABS: ABNORMAL IP MESSAGE 1; BASOPHILS % 0.2 % (0.0-2.0); EOSINOPHILS # 2.7 10^3/ul (0.0-0.5); EOSINOPHILS % 19.4 % (0.0-7.0); HEMATOCRIT 26.1 % (42.0-52.0); HEMOGLOBIN 8.2 g/dl (14.0-18.0); LYMPHOCYTES # 4.5 10^3/ul (0.8-2.9); LYMPHOCYTES % 31.9 % (15.0-51.0); MEAN CORPUSCULAR HEMOGLOBIN 24.8 pg (29.0-33.0); MEAN CORPUSCULAR HGB CONC 31.4 g/dl (32.0-37.0); MEAN CORPUSCULAR VOLUME 78.9 fl (82.0-101.0); MEAN PLATELET VOLUME 11.3 fl (7.4-10.4); MONOCYTE # 1.1 10^3/ul (0.3-0.9); MONOCYTES % 7.5 % (0.0-11.0); NEUTROPHIL # 5.7 10^3/ul (1.6-7.5); NEUTROPHILS % 40.7 % (39.0-77.0); PLATELET COUNT 254 10^3/UL (140-415); POSITIVE DIFF @See below; RED BLOOD COUNT 3.31 10^6/ul (4.70-6.10); RED CELL DISTRIBUTION WIDTH 22.7 % (11.5-14.5)
[2017-09-04 10:54] LABS: ANION GAP 8 (8-16); BLOOD UREA NITROGEN 12 mg/dl (7-20); CALCIUM 8.1 mg/dl (8.4-10.2); CARBON DIOXIDE 36 mmol/L (21-31); CHLORIDE 101 mmol/L (97-110); CREATININE 0.43 mg/dl (0.61-1.24); GLUCOSE 82 mg/dl (70-220); MAGNESIUM 1.7 mg/dl (1.7-2.5); POTASSIUM 3.7 mmol/L (3.5-5.1); SODIUM 141 mmol/L (135-144)
[2017-09-04] MEDS: POTASSIUM CHLORIDE 20 MEQ POWDER FOR ORAL SOLN NGT (12:18)
[2017-09-04] MEDS: MAGNESIUM SULFATE 2 GM/50 ML 50 ML IVPB (13:01)
[2017-09-04] MEDS: BISACODYL 10 MG SUPP PR (13:16)
[2017-09-04] MEDS: HYDROmorphONE 0.5 MG/0.5 ML SYG IV (13:16)
[2017-09-04] MEDS: HYDROCODONE/APAP (5/325) TAB GTB (17:52)
[2017-09-04] MEDS: ATORVASTATIN 10 MG TAB GTB (20:09)
[2017-09-05] MEDS: ALBUTEROL 0.083% (NEB) 2.5 MG/3 ML AMP NEB ×6 (00:03→21:02)
[2017-09-05] MEDS: IPRATROPIUM (NEB) 0.5 MG/2.5 ML AMP NEB ×6 (00:03→21:02)
[2017-09-05] MEDS: ACCU-CHEK XX (01:12)
[2017-09-05] MEDS: INSULIN ASPART [NOVOLOG] 3 ML PEN SC ×4 (05:20→17:58)
[2017-09-05 06:09] LABS: ADD MAN DIFF? NO
[2017-09-05 06:18] LABS: ABNORMAL IP MESSAGE 1; BASOPHILS % 0.2 % (0.0-2.0); EOSINOPHILS # 2.1 10^3/ul (0.0-0.5); EOSINOPHILS % 16.8 % (0.0-7.0); HEMATOCRIT 24.7 % (42.0-52.0); HEMOGLOBIN 7.9 g/dl (14.0-18.0); LYMPHOCYTES # 3.8 10^3/ul (0.8-2.9); LYMPHOCYTES % 30.5 % (15.0-51.0); MEAN CORPUSCULAR HEMOGLOBIN 25.4 pg (29.0-33.0); MEAN CORPUSCULAR VOLUME 79.4 fl (82.0-101.0); MEAN PLATELET VOLUME 11.4 fl (7.4-10.4); MONOCYTES % 7.7 % (0.0-11.0); NEUTROPHIL # 5.6 10^3/ul (1.6-7.5); NEUTROPHILS % 44.6 % (39.0-77.0); PLATELET COUNT 237 10^3/UL (140-415); POSITIVE DIFF @See below; RED BLOOD COUNT 3.11 10^6/ul (4.70-6.10); RED CELL DISTRIBUTION WIDTH 23.4 % (11.5-14.5)
[2017-09-05 06:18] LABS: WHITE BLOOD COUNT 12.5 10^3/ul (4.8-10.8)
[2017-09-05 06:31] LABS: MAGNESIUM 1.9 mg/dl (1.7-2.5)
[2017-09-05 06:35] LABS: ANION GAP 11 (8-16); BLOOD UREA NITROGEN 15 mg/dl (7-20); CALCIUM 8.3 mg/dl (8.4-10.2); CARBON DIOXIDE 33 mmol/L (21-31); CHLORIDE 101 mmol/L (97-110); CREATININE 0.44 mg/dl (0.61-1.24); GLUCOSE 88 mg/dl (70-220); POTASSIUM 4.2 mmol/L (3.5-5.1); SODIUM 141 mmol/L (135-144)
[2017-09-05] MEDS: FLUDROCORTISONE 0.1 MG TAB GTB (08:51)
[2017-09-05] MEDS: FAMOTIDINE 20 MG INJ IV ×2 (08:51→21:19)
[2017-09-05] MEDS: LACTOBACILLUS RHAMNOSUS CAP GTB ×2 (08:51→21:19)
[2017-09-05] MEDS: FOLIC ACID 1 MG TAB PEG (08:52)
[2017-09-05] MEDS: FERROUS SULFATE 60 MG/ML 5ML CUP PEG ×2 (08:52→21:19)
[2017-09-05] MEDS: FLUCONAZOLE 100 MG TAB PO (08:52)
[2017-09-05] MEDS: ZYVOX 600 MG TAB PO ×2 (08:52→21:19)
[2017-09-05] MEDS: BALSAM PERU/CASTOR OIL 60 GM TUBE TOP (08:53)
[2017-09-05] MEDS: SODIUM HYPOCHLORITE 0.125% 473 ML BTL IRR ×2 (08:53→21:20)
[2017-09-05] MEDS: COLISTIMETHATE 75 MG in SOD CHLORIDE 0.9% 100 ML IVPB ×2 (09:06→21:19)
[2017-09-05] MEDS: ATORVASTATIN 10 MG TAB GTB (21:19)
[2017-09-06] MEDS: ALBUTEROL 0.083% (NEB) 2.5 MG/3 ML AMP NEB ×6 (00:36→20:24)
[2017-09-06] MEDS: IPRATROPIUM (NEB) 0.5 MG/2.5 ML AMP NEB ×6 (00:37→20:24)
[2017-09-06] MEDS: ACCU-CHEK XX (02:00)
[2017-09-06] MEDS: INSULIN ASPART [NOVOLOG] 3 ML PEN SC ×4 (05:22→18:00)
[2017-09-06] MEDS: FLUDROCORTISONE 0.1 MG TAB GTB (08:43)
[2017-09-06] MEDS: LACTOBACILLUS RHAMNOSUS CAP GTB ×2 (08:43→21:41)
[2017-09-06] MEDS: FAMOTIDINE 20 MG INJ IV ×2 (08:43→21:41)
[2017-09-06] MEDS: ZYVOX 600 MG TAB PO ×2 (08:44→21:41)
[2017-09-06] MEDS: COLISTIMETHATE 75 MG in SOD CHLORIDE 0.9% 100 ML IVPB ×2 (08:44→21:43)
[2017-09-06] MEDS: BALSAM PERU/CASTOR OIL 60 GM TUBE TOP (08:44)
[2017-09-06] MEDS: FLUCONAZOLE 100 MG TAB PO (08:44)
[2017-09-06] MEDS: FERROUS SULFATE 60 MG/ML 5ML CUP PEG ×2 (08:44→21:41)
[2017-09-06] MEDS: FOLIC ACID 1 MG TAB PEG (08:44)
[2017-09-06] MEDS: SODIUM HYPOCHLORITE 0.125% 473 ML BTL IRR ×2 (16:00→21:42)
[2017-09-06] MEDS: COLLAGENASE 30 GM TUBE TOP (16:00)
[2017-09-06] MEDS: ATORVASTATIN 10 MG TAB GTB (21:43)
[2017-09-07] MEDS: ALBUTEROL 0.083% (NEB) 2.5 MG/3 ML AMP NEB ×6 (00:20→21:03)
[2017-09-07] MEDS: IPRATROPIUM (NEB) 0.5 MG/2.5 ML AMP NEB ×6 (00:21→21:03)
[2017-09-07] MEDS: ACCU-CHEK XX (02:00)
[2017-09-07] MEDS: INSULIN ASPART [NOVOLOG] 3 ML PEN SC ×4 (06:00→18:00)
[2017-09-07 06:09] LABS: ADD MAN DIFF? NO
[2017-09-07] MEDS: COLLAGENASE 30 GM TUBE TOP ×2 (06:11→09:55)
[2017-09-07 06:14] LABS: WHITE BLOOD COUNT 12.3 10^3/ul (4.8-10.8)
[2017-09-07 06:14] LABS: ABNORMAL IP MESSAGE 1; BASOPHIL # 0.1 10^3/ul (0.0-0.1); BASOPHILS % 0.4 % (0.0-2.0); EOSINOPHILS # 1.8 10^3/ul (0.0-0.5); HEMATOCRIT 27.1 % (42.0-52.0); HEMOGLOBIN 8.5 g/dl (14.0-18.0); LYMPHOCYTES # 4.9 10^3/ul (0.8-2.9); LYMPHOCYTES % 39.5 % (15.0-51.0); MEAN CORPUSCULAR HEMOGLOBIN 25.1 pg (29.0-33.0); MEAN CORPUSCULAR HGB CONC 31.4 g/dl (32.0-37.0); MEAN CORPUSCULAR VOLUME 79.9 fl (82.0-101.0); MONOCYTE # 0.8 10^3/ul (0.3-0.9); MONOCYTES % 6.3 % (0.0-11.0); NEUTROPHIL # 4.7 10^3/ul (1.6-7.5); NEUTROPHILS % 38.6 % (39.0-77.0); PLATELET COUNT 216 10^3/UL (140-415); POSITIVE DIFF @See below; RED BLOOD COUNT 3.39 10^6/ul (4.70-6.10); RED CELL DISTRIBUTION WIDTH 24.1 % (11.5-14.5)
[2017-09-07 06:41] LABS: ANION GAP 11 (8-16); BLOOD UREA NITROGEN 12 mg/dl (7-20); CALCIUM 8.4 mg/dl (8.4-10.2); CARBON DIOXIDE 34 mmol/L (21-31); CHLORIDE 102 mmol/L (97-110); CREATININE 0.45 mg/dl (0.61-1.24); GLUCOSE 88 mg/dl (70-220); POTASSIUM 4.1 mmol/L (3.5-5.1); SODIUM 143 mmol/L (135-144)
[2017-09-07 07:26] LABS: MAGNESIUM 1.7 mg/dl (1.7-2.5)
[2017-09-07] MEDS: SODIUM HYPOCHLORITE 0.125% 473 ML BTL IRR ×2 (09:53→22:15)
[2017-09-07] MEDS: LACTOBACILLUS RHAMNOSUS CAP GTB ×2 (09:53→22:14)
[2017-09-07] MEDS: FLUDROCORTISONE 0.1 MG TAB GTB (09:53)
[2017-09-07] MEDS: FERROUS SULFATE 60 MG/ML 5ML CUP PEG ×2 (09:54→22:14)
[2017-09-07] MEDS: FLUCONAZOLE 100 MG TAB PO (09:54)
[2017-09-07] MEDS: ZYVOX 600 MG TAB PO ×2 (09:54→22:14)
[2017-09-07] MEDS: FOLIC ACID 1 MG TAB PEG (09:54)
[2017-09-07] MEDS: FAMOTIDINE 20 MG INJ IV ×2 (09:54→22:14)
[2017-09-07] MEDS: COLISTIMETHATE 75 MG in SOD CHLORIDE 0.9% 100 ML IVPB ×2 (09:54→22:14)
[2017-09-07] MEDS: BALSAM PERU/CASTOR OIL 60 GM TUBE TOP (09:56)
[2017-09-07] MEDS: ATORVASTATIN 10 MG TAB GTB (22:14)
[2017-09-08] MEDS: IPRATROPIUM (NEB) 0.5 MG/2.5 ML AMP NEB ×6 (01:21→20:30)
[2017-09-08] MEDS: ALBUTEROL 0.083% (NEB) 2.5 MG/3 ML AMP NEB ×6 (01:21→20:30)
[2017-09-08] MEDS: ACCU-CHEK XX (02:00)
[2017-09-08] MEDS: INSULIN ASPART [NOVOLOG] 3 ML PEN SC ×4 (06:00→18:00)
[2017-09-08 06:36] LABS: ABNORMAL IP MESSAGE 1; HEMATOCRIT 28.8 % (42.0-52.0); HEMOGLOBIN 9.1 g/dl (14.0-18.0); MEAN CORPUSCULAR HEMOGLOBIN 25.1 pg (29.0-33.0); MEAN CORPUSCULAR HGB CONC 31.6 g/dl (32.0-37.0); MEAN CORPUSCULAR VOLUME 79.3 fl (82.0-101.0); PLATELET COUNT 241 10^3/UL (140-415); POSITIVE DIFF @See below; RED BLOOD COUNT 3.63 10^6/ul (4.70-6.10); RED CELL DISTRIBUTION WIDTH 24.1 % (11.5-14.5)
[2017-09-08 06:53] LABS: ADD MAN DIFF? YES
[2017-09-08 07:07] LABS: ANION GAP 11 (8-16); BLOOD UREA NITROGEN 12 mg/dl (7-20); CALCIUM 8.4 mg/dl (8.4-10.2); CARBON DIOXIDE 34 mmol/L (21-31); CHLORIDE 100 mmol/L (97-110); CREATININE 0.46 mg/dl (0.61-1.24); GLUCOSE 105 mg/dl (70-220); POTASSIUM 4.2 mmol/L (3.5-5.1); SODIUM 141 mmol/L (135-144)
[2017-09-08 07:14] LABS: MAGNESIUM 1.7 mg/dl (1.7-2.5)
[2017-09-08 07:14] LABS: PHOSPHORUS 2.9 mg/dl (2.5-4.9)
[2017-09-08 08:10] LABS: ANISOCYTOSIS 1+ (0-0); BAND NEUTROPHILS #M 1.4 10^3/ul (0.0-0.6); BAND NEUTROPHILS % (M) 9 % (0-4); BASOPHIL #M 0.1 10^3/ul (0.0-0.0); BASOPHILS % (M) 1 % (0-2); EOSINOPHILS % (M) 6 % (0-7); GIANT THROMBO% (M) 1 % (0-0); HYPOCHROMASIA 1+ (0-0); LYMPHOCYTES #M 4.4 10^3/ul (0.8-2.9); LYMPHOCYTES % (M) 28 % (15-51); MONOCYTE #M 1.2 10^3/ul (0.3-0.9); MONOCYTES % (M) 8 % (0-11); PLATELET ESTIMATE NORMAL; POIKILOCYTOSIS 1+ (0-0); POLYCHROMASIA 3+ (0-0); REACTIVE LYMPHOCYTES #M 0.6 10^3/ul (0.0-0.0); REACTIVE LYMPHOCYTES% (M) 4 % (0-0); SEG NEUT #M 7.3 10^3/ul (1.6-7.5); SEGMENTED NEUTROPHILS (M) % 44 % (39-77); SMUDGE%M 15 % (0-0); TARGET CELLS 1+ (0-0)
[2017-09-08] MEDS: FERROUS SULFATE 60 MG/ML 5ML CUP PEG ×2 (09:51→21:40)
[2017-09-08] MEDS: FAMOTIDINE 20 MG INJ IV ×2 (09:52→21:40)
[2017-09-08] MEDS: FLUDROCORTISONE 0.1 MG TAB GTB (09:52)
[2017-09-08] MEDS: LACTOBACILLUS RHAMNOSUS CAP GTB ×2 (09:52→21:40)
[2017-09-08] MEDS: ZYVOX 600 MG TAB PO ×2 (09:52→21:41)
[2017-09-08] MEDS: BALSAM PERU/CASTOR OIL 60 GM TUBE TOP (09:53)
[2017-09-08] MEDS: SODIUM HYPOCHLORITE 0.125% 473 ML BTL IRR ×2 (09:53→21:41)
[2017-09-08] MEDS: COLLAGENASE 30 GM TUBE TOP (09:54)
[2017-09-08] MEDS: FLUCONAZOLE 100 MG TAB PO (09:59)
[2017-09-08] MEDS: COLISTIMETHATE 75 MG in SOD CHLORIDE 0.9% 100 ML IVPB ×2 (10:19→21:40)
[2017-09-08] MEDS: FOLIC ACID 1 MG TAB PEG (10:19)
[2017-09-08] MEDS: ATORVASTATIN 10 MG TAB GTB (21:40)
[2017-09-09] MEDS: IPRATROPIUM (NEB) 0.5 MG/2.5 ML AMP NEB ×6 (00:28→21:44)
[2017-09-09] MEDS: ALBUTEROL 0.083% (NEB) 2.5 MG/3 ML AMP NEB ×6 (00:28→21:44)
[2017-09-09] MEDS: ACCU-CHEK XX (02:00)
[2017-09-09] MEDS: INSULIN ASPART [NOVOLOG] 3 ML PEN SC ×4 (06:00→18:00)
[2017-09-09 06:14] LABS: ADD MAN DIFF? NO
[2017-09-09 06:19] LABS: WHITE BLOOD COUNT 13.9 10^3/ul (4.8-10.8)
[2017-09-09 06:19] LABS: ABNORMAL IP MESSAGE 1; BASOPHIL # 0.1 10^3/ul (0.0-0.1); BASOPHILS % 0.5 % (0.0-2.0); EOSINOPHILS # 3.3 10^3/ul (0.0-0.5); EOSINOPHILS % 23.9 % (0.0-7.0); HEMATOCRIT 26.1 % (42.0-52.0); HEMOGLOBIN 8.3 g/dl (14.0-18.0); LYMPHOCYTES # 4.3 10^3/ul (0.8-2.9); LYMPHOCYTES % 30.6 % (15.0-51.0); MEAN CORPUSCULAR HEMOGLOBIN 25.2 pg (29.0-33.0); MEAN CORPUSCULAR HGB CONC 31.8 g/dl (32.0-37.0); MEAN CORPUSCULAR VOLUME 79.3 fl (82.0-101.0); MEAN PLATELET VOLUME 11.4 fl (7.4-10.4); MONOCYTE # 1.3 10^3/ul (0.3-0.9); MONOCYTES % 9.4 % (0.0-11.0); NEUTROPHIL # 4.9 10^3/ul (1.6-7.5); NEUTROPHILS % 35.2 % (39.0-77.0); PLATELET COUNT 196 10^3/UL (140-415); POSITIVE DIFF @See below; RED BLOOD COUNT 3.29 10^6/ul (4.70-6.10); RED CELL DISTRIBUTION WIDTH 24.3 % (11.5-14.5)
[2017-09-09 06:48] LABS: MAGNESIUM 1.7 mg/dl (1.7-2.5)
[2017-09-09 06:55] LABS: ANION GAP 11 (8-16); BLOOD UREA NITROGEN 13 mg/dl (7-20); CALCIUM 8.4 mg/dl (8.4-10.2); CARBON DIOXIDE 33 mmol/L (21-31); CHLORIDE 100 mmol/L (97-110); CREATININE 0.51 mg/dl (0.61-1.24); GLUCOSE 79 mg/dl (70-220); POTASSIUM 3.9 mmol/L (3.5-5.1); SODIUM 140 mmol/L (135-144)
[2017-09-09] MEDS: FOLIC ACID 1 MG TAB PEG (09:09)
[2017-09-09] MEDS: FAMOTIDINE 20 MG INJ IV ×2 (09:09→21:18)
[2017-09-09] MEDS: FERROUS SULFATE 60 MG/ML 5ML CUP PEG ×2 (09:09→21:18)
[2017-09-09] MEDS: ZYVOX 600 MG TAB PO ×2 (09:09→21:18)
[2017-09-09] MEDS: FLUCONAZOLE 100 MG TAB PO (09:09)
[2017-09-09] MEDS: LACTOBACILLUS RHAMNOSUS CAP GTB ×2 (09:10→21:18)
[2017-09-09] MEDS: FLUDROCORTISONE 0.1 MG TAB GTB (09:10)
[2017-09-09] MEDS: SODIUM HYPOCHLORITE 0.125% 473 ML BTL IRR ×2 (09:11→21:00)
[2017-09-09] MEDS: BALSAM PERU/CASTOR OIL 60 GM TUBE TOP ×2 (09:11→21:27)
[2017-09-09] MEDS: COLLAGENASE 30 GM TUBE TOP (09:12)
[2017-09-09] MEDS: COLISTIMETHATE 75 MG in SOD CHLORIDE 0.9% 100 ML IVPB ×2 (09:29→21:18)
[2017-09-09] MEDS: ATORVASTATIN 10 MG TAB GTB (21:18)
[2017-09-10] MEDS: IPRATROPIUM (NEB) 0.5 MG/2.5 ML AMP NEB ×6 (00:49→21:33)
[2017-09-10] MEDS: ALBUTEROL 0.083% (NEB) 2.5 MG/3 ML AMP NEB ×6 (00:49→21:33)
[2017-09-10] MEDS: ACCU-CHEK XX (01:30)
[2017-09-10] MEDS: INSULIN ASPART [NOVOLOG] 3 ML PEN SC ×4 (06:00→18:00)
[2017-09-10] MEDS: COLISTIMETHATE 75 MG in SOD CHLORIDE 0.9% 100 ML IVPB ×2 (09:03→20:45)
[2017-09-10] MEDS: ZYVOX 600 MG TAB PO ×2 (09:04→20:49)
[2017-09-10] MEDS: FLUDROCORTISONE 0.1 MG TAB GTB (09:04)
[2017-09-10] MEDS: FOLIC ACID 1 MG TAB PEG (09:04)
[2017-09-10] MEDS: FLUCONAZOLE 100 MG TAB PO (09:04)
[2017-09-10] MEDS: FERROUS SULFATE 60 MG/ML 5ML CUP PEG ×2 (09:04→20:49)
[2017-09-10] MEDS: LACTOBACILLUS RHAMNOSUS CAP GTB ×2 (09:04→20:49)
[2017-09-10] MEDS: SODIUM HYPOCHLORITE 0.125% 473 ML BTL IRR ×2 (09:05→20:50)
[2017-09-10] MEDS: COLLAGENASE 30 GM TUBE TOP (09:06)
[2017-09-10] MEDS: FAMOTIDINE 20 MG INJ IV ×2 (09:10→20:48)
[2017-09-10] MEDS: ATORVASTATIN 10 MG TAB GTB (20:49)
[2017-09-11] MEDS: HYDROCODONE/APAP (5/325) TAB GTB (00:12)
[2017-09-11] MEDS: ALBUTEROL 0.083% (NEB) 2.5 MG/3 ML AMP NEB ×6 (01:48→21:09)
[2017-09-11] MEDS: IPRATROPIUM (NEB) 0.5 MG/2.5 ML AMP NEB ×6 (01:48→21:09)
[2017-09-11] MEDS: ACCU-CHEK XX (02:00)
[2017-09-11 05:59] LABS: WHITE BLOOD COUNT 13.6 10^3/ul (4.8-10.8)
[2017-09-11 05:59] LABS: ABNORMAL IP MESSAGE 1; HEMOGLOBIN 8.3 g/dl (14.0-18.0); MEAN CORPUSCULAR HEMOGLOBIN 25.4 pg (29.0-33.0); MEAN CORPUSCULAR HGB CONC 31.9 g/dl (32.0-37.0); MEAN CORPUSCULAR VOLUME 79.5 fl (82.0-101.0); MEAN PLATELET VOLUME 11.1 fl (7.4-10.4); PLATELET COUNT 178 10^3/UL (140-415); POSITIVE DIFF @See below; RED BLOOD COUNT 3.27 10^6/ul (4.70-6.10)
[2017-09-11] MEDS: INSULIN ASPART [NOVOLOG] 3 ML PEN SC ×4 (06:00→18:00)
[2017-09-11 06:23] LABS: ANION GAP 8 (8-16); BLOOD UREA NITROGEN 13 mg/dl (7-20); CALCIUM 8.3 mg/dl (8.4-10.2); CARBON DIOXIDE 35 mmol/L (21-31); CHLORIDE 99 mmol/L (97-110); CREATININE 0.52 mg/dl (0.61-1.24); GLUCOSE 88 mg/dl (70-220); SODIUM 138 mmol/L (135-144)
[2017-09-11 06:32] LABS: ADD MAN DIFF? YES
[2017-09-11 06:37] LABS: MAGNESIUM 1.7 mg/dl (1.7-2.5)
[2017-09-11 07:43] LABS: ANISOCYTOSIS 2+ (0-0); BAND NEUTROPHILS #M 0.1 10^3/ul (0.0-0.6); BAND NEUTROPHILS % (M) 1 % (0-4); EOSINOPHILS % (M) 28 % (0-7); GIANT THROMBO% (M) 1 % (0-0); HYPOCHROMASIA 2+ (0-0); LYMPHOCYTES #M 3.9 10^3/ul (0.8-2.9); LYMPHOCYTES % (M) 29 % (15-51); MICROCYTOSIS 1+ (0-0); MONOCYTE #M 1.4 10^3/ul (0.3-0.9); MONOCYTES % (M) 11 % (0-11); OVALOCYTES 1+ (0-0); PLATELET ESTIMATE NORMAL; POIKILOCYTOSIS 1+ (0-0); POLYCHROMASIA 3+ (0-0); REACTIVE LYMPHOCYTES #M 0.1 10^3/ul (0.0-0.0); REACTIVE LYMPHOCYTES% (M) 1 % (0-0); SEG NEUT #M 4.1 10^3/ul (1.6-7.5); SEGMENTED NEUTROPHILS (M) % 30 % (39-77); SMUDGE%M 5 % (0-0); TARGET CELLS 1+ (0-0)
[2017-09-11] MEDS: FLUCONAZOLE 100 MG TAB PO (09:05)
[2017-09-11] MEDS: LACTOBACILLUS RHAMNOSUS CAP GTB ×2 (09:05→21:49)
[2017-09-11] MEDS: SODIUM HYPOCHLORITE 0.125% 473 ML BTL IRR ×2 (09:05→22:06)
[2017-09-11] MEDS: FAMOTIDINE 20 MG INJ IV ×2 (09:05→21:49)
[2017-09-11] MEDS: FERROUS SULFATE 60 MG/ML 5ML CUP PEG ×2 (09:05→21:50)
[2017-09-11] MEDS: FLUDROCORTISONE 0.1 MG TAB GTB (09:05)
[2017-09-11] MEDS: FOLIC ACID 1 MG TAB PEG (09:05)
[2017-09-11] MEDS: ZYVOX 600 MG TAB PO ×2 (09:05→21:49)
[2017-09-11] MEDS: BALSAM PERU/CASTOR OIL 60 GM TUBE TOP (09:06)
[2017-09-11] MEDS: COLLAGENASE 30 GM TUBE TOP (09:06)
[2017-09-11] MEDS: COLISTIMETHATE 75 MG in SOD CHLORIDE 0.9% 100 ML IVPB ×2 (09:18→21:49)
[2017-09-11] MEDS: ATORVASTATIN 10 MG TAB GTB (21:49)
[2017-09-12] MEDS: IPRATROPIUM (NEB) 0.5 MG/2.5 ML AMP NEB ×5 (01:41→17:00)
[2017-09-12] MEDS: ALBUTEROL 0.083% (NEB) 2.5 MG/3 ML AMP NEB ×5 (01:41→17:00)
[2017-09-12] MEDS: ACCU-CHEK XX (02:00)
[2017-09-12] MEDS: COLLAGENASE 30 GM TUBE TOP ×4 (04:30→06:27)
[2017-09-12] MEDS: INSULIN ASPART [NOVOLOG] 3 ML PEN SC ×3 (06:00→12:00)
[2017-09-12] MEDS: FLUDROCORTISONE 0.1 MG TAB GTB (10:42)
[2017-09-12] MEDS: FAMOTIDINE 20 MG INJ IV (10:42)
[2017-09-12] MEDS: ZYVOX 600 MG TAB PO (10:42)
[2017-09-12] MEDS: LACTOBACILLUS RHAMNOSUS CAP GTB (10:42)
[2017-09-12] MEDS: FOLIC ACID 1 MG TAB PEG (10:42)
[2017-09-12] MEDS: FLUCONAZOLE 100 MG TAB PO (10:43)
[2017-09-12] MEDS: FERROUS SULFATE 60 MG/ML 5ML CUP PEG (10:43)
[2017-09-12] MEDS: SODIUM HYPOCHLORITE 0.125% 473 ML BTL IRR (10:43)
[2017-09-12] MEDS: BALSAM PERU/CASTOR OIL 60 GM TUBE TOP (10:58)
[2017-09-12] MEDS: COLISTIMETHATE 75 MG in SOD CHLORIDE 0.9% 100 ML IVPB (10:58)
== END 2017-09-12 17:00 | DRG 853 ==
LOC: E/R 18:51 → MS2 09-02 21:06 → TEL 20:48
PROC: 0KBP0ZZ Excision of Left Hip Muscle, Open Approach (ICD-10-PCS; principal; 2017-09-04)
PROC: 0KBP0ZZ Excision of Left Hip Muscle, Open Approach (ICD-10-PCS; 2017-09-05)
PROC: 0KBN0ZZ Excision of Right Hip Muscle, Open Approach (ICD-10-PCS; 2017-09-05)
DX: A41.02 Sepsis due to Methicillin resistant Staphylococcus aureus (principal); J96.21 Acute and chronic respiratory failure with hypoxia; G93.1 Anoxic brain damage, not elsewhere classified; E43 Unspecified severe protein-calorie malnutrition; L89.154 Pressure ulcer of sacral region, stage 4; J18.9 Pneumonia, unspecified organism; L89.224 Pressure ulcer of left hip, stage 4; L89.614 Pressure ulcer of right heel, stage 4; L89.814 Pressure ulcer of head, stage 4; L89.893 Pressure ulcer of other site, stage 3; L89.813 Pressure ulcer of head, stage 3; Z43.1 Encounter for attention to gastrostomy; Z68.1 Body mass index [BMI] 19.9 or less, adult; B37.49 Other urogenital candidiasis; E86.0 Dehydration; Z93.0 Tracheostomy status; E11.9 Type 2 diabetes mellitus without complications; M62.462 Contracture of muscle, left lower leg; M62.461 Contracture of muscle, right lower leg; E87.6 Hypokalemia; Z89.202 Acquired absence of left upper limb, unspecified level; R13.10 Dysphagia, unspecified; D50.9 Iron deficiency anemia, unspecified; A41.59 Other Gram-negative sepsis; B96.5 Pseudomonas (aeruginosa) (mallei) (pseudomallei) as the cause of diseases classified elsewhere; Z16.24 Resistance to multiple antibiotics; Z66 Do not resuscitate; Z16.22 Resistance to vancomycin related antibiotics; R33.9 Retention of urine, unspecified; N31.9 Neuromuscular dysfunction of bladder, unspecified; L89.892 Pressure ulcer of other site, stage 2; L89.320 Pressure ulcer of left buttock, unstageable; L89.522 Pressure ulcer of left ankle, stage 2
CPT/HCPCS: 36415; 36600; 71045; 71250; 80048; 80053; 80061; 80202; 80307; 81001; 82803; 82962; 83036; 83605; 83735; 84100; 84443; 84484; 85014; 85018; 85025; 85610; 85730; 87040; 87045; 87070; 87081; 87086; 87400; 92610; 93005; 94640; 94664; 96374; 96375; 97162; 97167; 99285-25